=== PATIENT | female | born 1995 | race Two or more races ===

== ENCOUNTER 2023-04-24 10:02 | Inpatient (IN) ==
[2023-04-24] MEDS ORDERED: Lactated Ringers 1000 ml BAG 1,000 ML IV ONE ×2 (13:45→21:15)
[2023-04-24] MEDS ORDERED: Lidocaine 1% VIAL 10 MG/ML 30 ML VIAL INJ PRN (13:45)
[2023-04-24] MEDS ORDERED: Oxytocin in LR 20,000 MILLI.UNIT/1,000 ML BAG IV SCH (13:45)
[2023-04-24] MEDS ORDERED: Buffered Lidocaine 1% SYRIN 1 ml INTRADERM ONE (13:45)
[2023-04-24] MEDS ORDERED: Lactated Ringers 1000 ml BAG 1,000 ML IV SCH ×2 (14:00→22:00)
[2023-04-24 14:28] LABS: ABS Lymphocytes 1.9 10^3/uL (1.0-4.8); ABS Monocytes 0.5 10^3/uL (0.0-0.9); ABS Neutrophils 6.2 10^3/uL (1.5-7.6); Eosinophil % 0.2 %; Hematocrit 38.7 % (35-45); Hemoglobin 13.4 g/dL (11.5-14.3); Lymphocyte % 22.2 %; Mean Corpuscular Hemoglobin 31.9 pg (27-33); Mean Corpuscular Hgb Conc 34.5 g/dL (31-36); Mean Corpuscular Volume 92.4 fL (80-97); Mean Platelet Volume 11.7 fL (7.5-11.2); Nucleated Red Blood Cells % 0.1 %/100WBC (0.0-0.8); Platelet Count 147 10^3/uL (150-450); Red Blood Count 4.19 10^6/uL (3.63-4.92); Red Cell Distribution Width 13.9 % (12-17); White Blood Count 8.7 10^3/uL (3.8-11.8)
[2023-04-24 16:12] LABS: Urine Benzodiazepine Screen None Detected (None Detect); Urine Opiates Screen None Detected (None Detect)
[2023-04-24] MEDS ORDERED: OBEPIDURAL (200 ML) 200 ML EPIDURAL ONE (20:35)
[2023-04-24] MEDS ORDERED: Lidocaine 1.5% EPI 1:200,000 30 ML SDV ONE (20:35)
[2023-04-24] MEDS ORDERED: Phenylephrine 40 mcg/mL 10mL (400mcg) SYRINGE IV PUSH PRN ×2 (21:15)
[2023-04-24] MEDS ORDERED: Sodium Citrate/Citric Acid LIQ 15 ML UDC PO PRN (21:15)
[2023-04-24] MEDS ORDERED: OBEPIDURAL (200 ML) 200 ML EPIDURAL SCH (22:00)
[2023-04-24 22:27] LABS: Urine Appearance Clear; Urine Bilirubin Negative (Negative); Urine Blood 2+ (Negative); Urine Color Yellow; Urine Glucose Negative (Negative); Urine Ketones Negative (Negative); Urine Nitrite Negative (Negative); Urine Protein 2+(100 mg/dL) (Negative); Urine Specific Gravity 1.017 (1.002-1.030); Urine Urobilinogen Negative (Negative)
[2023-04-24 23:28] LABS: Urine Bacteria Absent (Absent); Urine Red Blood Cell 3+(>10/hpf) (Absent); Urine White Blood Cell Trace(0-5/hpf) (Absent)
[2023-04-25] MEDS ORDERED: Witch Hazel PAD JAR TOPICAL PRN (00:53)
[2023-04-25] MEDS ORDERED: Dibucaine 1% OINT 28.35 GM TUBE PR PRN (00:53)
[2023-04-25] MEDS ORDERED: Lactated Ringers 1000 ml BAG 1,000 ML IV SCH (01:00)
[2023-04-26 08:43] LABS: ABS Lymphocytes 2.7 10^3/uL (1.0-4.8); ABS Monocytes 0.7 10^3/uL (0.0-0.9); ABS Neutrophils 5.7 10^3/uL (1.5-7.6); Eosinophil % 0.5 %; Hematocrit 28.3 % (35-45); Lymphocyte % 29.3 %; Mean Corpuscular Hgb Conc 35.5 g/dL (31-36); Mean Corpuscular Volume 93.1 fL (80-97); Mean Platelet Volume 11.4 fL (7.5-11.2); Platelet Count 113 10^3/uL (150-450); Red Blood Count 3.04 10^6/uL (3.63-4.92); Red Cell Distribution Width 13.8 % (12-17); White Blood Count 9.2 10^3/uL (3.8-11.8)
[2023-04-27 08:25] VITALS: BP 111/57
== END 2023-04-27 12:25 | disposition home or self-care (01) | DRG 560 ==
LOC: MCHOBOUT 10:02 → MCHOB 13:08
PROVIDERS: ADMIT Registered Nurse; ATTEND Registered Nurse